=== PATIENT | female | born 1970 | race Caucasian/White ===

== ENCOUNTER 2018-05-30 15:24 | Emergency (ER) | payer SELFPAY ==
[~2018-05-30] VITALS: Ht 157.5 cm; Wt 73.9 kg
[2018-05-30 15:36] VITALS: BP 128/91
--- NOTE | 2018-05-30 15:41 | NUR ---
PATIENT AMB. TO RM# 5
--- NOTE | 2018-05-30 15:45 | NUR ---
PATIENT PRESENTS TO ED WITH L WRIST PAIN . PT STATES PAIN STARTED WITHOUT KNOWN CAUSE 2 WEEKS AGO . DENIES N/V/D; SKIN IS PINK/WARM/DRY; AAOX4 WITH EVEN AND STEADY GAIT; LUNGS CLEAR BL; HR EVEN AND REGULAR; PT DENIES ANY FEVER, CP, SOB, OR COUGH AT THIS TIME; PATIENT STATES PAIN OF 6/10 AT THIS TIME; VSS; PATIENT POSITIONED FOR COMFORT; HOB ELEVATED; BEDRAILS UP X2; BED DOWN. ER MD MADE AWARE OF PT STATUS.
--- NOTE | 2018-05-30 17:45 | NUR ---
Awaiting discharge instructions. Patient with no complaints. All needs met at this time. Will continue to monitor.
[2018-05-30 18:20] VITALS: BP 150/87
== END 2018-05-30 18:20 | disposition home or self-care (01) ==
LOC: MED 15:24
DX: M25.532 Pain in left wrist (principal); E11.9 Type 2 diabetes mellitus without complications; I10 Essential (primary) hypertension
CPT/HCPCS: 73110; 81002; 81025; 82948; 99284; Q0092

== ENCOUNTER 2022-11-19 16:13 | Emergency (ER) | payer SELFPAY ==
[~2022-11-19] VITALS: Ht 160 cm; Wt 71.7 kg
[2022-11-19 16:18] VITALS: BP 111/68
--- NOTE | 2022-11-19 16:30 | NUR ---
52/F WALKED IN C/O LEFT EAR PAIN ONSET 1 WK. PT STATES BEING PX IBUPROFEN AND SULFAMETHOXAZOLE/TRIMETHOPRIM 800MG/160MG 1 WK AGO FROM PCP WITH NO RELIEF. DENIES DISCHARGE FROM EAR. PMH: DM, HTN
[2022-11-19] MEDS ORDERED: HYDROcodone/APAP 5/325 MG 1 TAB TAB PO ONE (17:15)
[2022-11-19] MEDS ORDERED: ACET-9525 PO (18:00)
== END 2022-11-19 18:10 | disposition home or self-care (01) ==
LOC: MED 16:13
DX: H92.02 Otalgia, left ear (principal); I10 Essential (primary) hypertension; E11.9 Type 2 diabetes mellitus without complications; Z79.4 Long term (current) use of insulin; Z79.899 Other long term (current) drug therapy
CPT/HCPCS: 70450; 99284